=== PATIENT | female | born 1970 | race Caucasian/White ===

== ENCOUNTER → 2017-03-27 | Day surgery (SDC) | payer BC ==
[~2017-03-27] VITALS: Ht 162.6 cm; Wt 108.1 kg
[~2017-03-27] MED LIST: ACETAMINOPHEN/HYDROcodone 325 MG/5 MG TAB PO PRN; BUPIVACAINE HCL PF 0.25% 30 ML VIAL INFIL ONE; CEPH-460 PO; CHLORHEXIDINE GLUCONATE 2 % 1 PACK (2 CLOTHS) TOPICAL PRN; DO NOT ADM ANY ANTICOAGULANT DRUGS PRN; INSULIN HUMAN REGULAR 1,000 UNITS/10 ML VIAL SQ PRN; LACTATED RINGER'S 1000 ML INJ 1,000 ML IV ONE; LACTATED RINGER'S 1000 ML IV PRN; LIDOCAINE HCL 2% 50 ML VIAL INFIL ONE; MEPERIDINE HCL 50 MG/ML VIAL IM PRN; METOPROLOL TARTRATE 25 MG TAB PO PRN; MIDAZOLAM HCL 2 MG/2 ML VIAL ONE; NEOMYCIN/POLYMYXIN 1 ML G.U. IRRIGANT TOPICAL ONE; NORC5TAB PO; POVIDONE IODINE 5% (ANTISEPSIS KIT) 4 APPLICATIONS EACH NARE PRN; PROPOFOL 200 MG/20 ML AMP IV ONE; SODIUM CHLORID 0.9% 500 ML IV PRN; ceFAZolin 2 GM PREMIX 50 ML IV SCH
[2017-03-27 08:43] VITALS: BP 149/91; PULSE 74; RESP 20; TEMP 98; O2SAT 96
[2017-03-27 09:15] LABS: BASOPHIL % 0.6 % (0.0-2.0); EOSINOPHIL # 0.1 TH/MM3 (0-0.4); EOSINOPHIL % 1.1 % (0.0-4.0); HEMATOCRIT 40.8 % (35.0-46.0); HEMO FLAGS DIFF FINAL; LYMPH % 45.7 % (9.0-44.0); LYMPHOCYTE # 2.9 TH/MM3 (1.0-4.8); MEAN CELL VOLUME 88.6 FL (80.0-100.0); MEAN CORPUSCULAR HEMOGLOBIN 30.1 PG (27.0-34.0); MONO % 5.2 % (0.0-8.0); NEUT % 47.4 % (16.0-70.0); PLATELET COUNT 263 TH/MM3 (150-450); RED BLOOD COUNT 4.61 MIL/MM3 (4.00-5.30); RED CELL DISTRIBUTION WIDTH 13.2 % (11.6-17.2); WHITE BLOOD COUNT 6.3 TH/MM3 (4.0-11.0)
[2017-03-27 12:30] VITALS: BP 142/91; PULSE 74; RESP 18; TEMP 96.3; O2SAT 98
--- NOTE | 2017-03-27 15:37 | MP ---
cc: KEVIN WHEELER III, M.D. DATE OF SURGERY: 03/27/2017 PREOPERATIVE DIAGNOSIS Left dorsal wrist mass. PROCEDURE Left wrist mass excisional biopsy. SURGEON Kevin Wheeler III, MD PROCEDURE The patient was brought to the operating room and placed supine on the operating table. After the correct site and side of surgery were verified by members of each team in the room multiple times including the patient and myself and after adequate preoperative markings and preoperative written consent were verified by everyone, and after adequate preoperative time-out was performed and after adequate IV sedation had been achieved, the left upper extremity was prepped and draped in the traditional sterile surgical fashion. A 50/50 mixture of 2% plain lidocaine and 0.5% plain Marcaine was infiltrated in the skin and subcutaneous tissue and into the wrist. The limb was exsanguinated with gentle Bonilla wrap, highly placed well-padded axillary tourniquet was inflated to 200 mmHg for approximately 25 minutes. A longitudinal oriented incision was made on the dorsal aspect of the wrist within the skin creases was made, carried down through skin and subcutaneous tissue. Blunt dissection was performed. Bipolar electrocautery was used as needed. Immediately evident coming through the tendons was a large fluid-filled cystic mass, it was dissected free from surrounding tissues down to the dorsal aspect of the wrist capsule. It was traced down to its origin and amputated at the base and passed off the field in its entirety as specimen. The area was then debrided and the bipolar electrocautery was used ___ some inflammatory response on the dorsal aspect of the wrist, on the dorsal aspect of the wrist capsule to prevent recurrence. There were no other anatomic abnormalities identified. There was no entry into the wrist capsule itself. All the extensor tendons were intact and uninjured. Thorough irrigation with a liters worth of saline was performed. The skin edges were reapproximated using 4-0 Vicryl suture in the deep subcutaneous tissue and then the skin edges were reapproximated using running 4-0 subcuticular Monocryl. The hand and arm were thoroughly cleansed and dried. Mastisol and Steri-Strips were applied. Additional local anesthetic was injected into the wrist joint for postoperative pain control and a bulky soft sterile dressing was applied and then a volar immobilizing splint was made in the usual fashion. The axillary tourniquet was released, the hand and all the fingers became immediately soft, pink and warm and had brisk capillary refill of less than 2 seconds. The patient was awakened from anesthesia and transported to the Post Anesthesia Care Unit awake and in stable condition. Sponge, needle, instrument counts were correct at the end of case as reported by nurses in the room. MD MARILYN Alcazar III/JO ANN /10:45 AM /3:16 PM
== END | disposition home or self-care (01) ==
LOC: HSDC 07:51
PROVIDERS: ATTEND Orthopaedic Surgery Hand Surgery
DX: M25.832 Other specified joint disorders, left wrist (principal); R22.32 Localized swelling, mass and lump, left upper limb; E66.9 Obesity, unspecified; Z68.41 Body mass index [BMI] 40.0-44.9, adult; Z87.891 Personal history of nicotine dependence
CPT/HCPCS: 01810; 25110; 85025; 88304; J2250; J3010; J7120; 88305